=== PATIENT | female | born 1970 | race Caucasian/White ===

== ENCOUNTER 2018-07-21 22:35 | Emergency (ER) | payer SELFPAY ==
--- NOTE | 2018-07-21 22:45 | EDM.PDOC ---
ED HPI GENERAL MEDICAL PROBLEM - General Chief Complaint: Head Injury Stated Complaint: HEAD INJURY Time Seen by Provider: 07/21/18 22:45 Source of Information: Reports: Patient - History of Present Illness INITIAL COMMENTS - FREE TEXT/NARRATIVE: HISTORY AND PHYSICAL: History of present illness: [Patient was at [facility] she reports she tripped on a rug falling she did strike her left brow she does have a 1 cm linear laceration, he did offer stitches however she prefers Dermabond sufficient there is excellent wound approximation of loss of consciousness she does complain of left wrist pain x- rays obtained to acute fracture identified however she did have pain in the anatomical snuffbox hence thumb spica placed No fever nausea vomiting chills sweats no chest pain shortness breath headache dizziness palpitation no bowel or urine symptoms] Review of systems: As per history of present illness and below otherwise all systems reviewed and negative. Past medical history: As per history of present illness and as reviewed below otherwise noncontributory. Surgical history: As per history of present illness and as reviewed below otherwise noncontributory. Social history: No reported history of drug or alcohol abuse. Family history: As per history of present illness and as reviewed below otherwise noncontributory. Physical exam: HEENT: Atraumatic, normocephalic, pupils reactive, negative for conjunctival pallor or scleral icterus, mucous membranes moist, throat clear, neck supple, nontender, trachea midline. Lungs: Clear to auscultation, breath sounds equal bilaterally, chest nontender. Heart: S1S2, regular, negative for clicks, rubs, or JVD. Abdomen: Soft, nondistended, nontender. Negative for masses or hepatosplenomegaly. Negative for costovertebral tenderness. Pelvis: Stable nontender. Genitourinary: Deferred. Rectal: Deferred. Extremities: Atraumatic, negative for cords or calf pain. Neurovascular unremarkable. Neuro: Awake, alert, oriented. Cranial nerves II through XII unremarkable. Cerebellum unremarkable. Motor and sensory unremarkable throughout. Exam nonfocal. Skin as per history of present illness otherwise unremarkable Diagnostics: [Left wrist complete Head without contrast ] Therapeutics: []Left thumb spica Dermabond Impression: [] laceration 1 cm, simple left wrist sprain Snuffbox tenderness cannot rule out scaphoid fracture at this time Definitive disposition and diagnosis as appropriate pending reevaluation and review of above. 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 (Cancer) History: Reports: Lymphoma - Past Surgical History HEENT Surgical History: Reports: Naso-Sinus Surgery GI Surgical History: Reports: Cholecystectomy Female Surgical History: Reports: Hysterectomy, Other (See Below) Other Female Surgeries/Procedures: bladder sling Social & Family History - Tobacco Use Smoking Status *Q: Never Smoker - Recreational Drug Use Recreational Drug Use: No ED ROS GENERAL - Review of Systems Review Of Systems: See Below ED EXAM, HEAD INJURY - Physical Exam Exam: See Below Course - Vital Signs Last Recorded V/S: Last Vital Signs Temp 97.1 F 07/21/18 22:38 Pulse 70 07/21/18 22:38 Resp 18 07/21/18 22:38 BP 114/57 L 07/21/18 22:38 Pulse Ox 98 07/21/18 22:38 - Orders/Labs/Meds Orders: Active Orders 24 hr Category Date Time Status Head wo Cont [CT] Stat Exams 07/21/18 22:45 Taken Wrist Comp Min 3V Lt [CR] Stat Exams 07/21/18 22:45 Taken Meds: Medications Discontinued Medications Generic Name Dose Route Start Last Admin Trade Name Freq PRN Reason Stop Dose Admin Octyl Cyanoacrylate 1 applic 07/21/18 23:28 Dermabond Advance TOP 07/21/18 23:29 ONETIME ONE Departure - Departure Time of Disposition: 23:43 Disposition: Home, Self-Care 01 Condition: Good Clinical Impression: Laceration - Discharge Information Forms: ED Department Discharge Additional Instructions: Thumb spica on the left Standard wound care instruction Keep wound clean and dry Return if symptoms persist or worsen or new concerning symptoms develop Follow-up with orthopedist, call phone number below to schedule appropriate follow-up [facility] [address], [address] [place] [address] my orthopedic The following information is given to patients seen in the emergency department who are being discharged to home. This information is to outline your options for follow-up care. We provide all patients seen in our emergency department with a follow-up referral. The need for follow-up, as well as the timing and circumstances, are variable depending upon the specifics of your emergency department visit. If you don't have a primary care physician on staff, we will provide you with a referral. We always advise you to contact your personal physician following an emergency department visit to inform them of the circumstance of the visit and for follow-up with them and/or the need for any referrals to a consulting specialist. The emergency department will also refer you to a specialist when appropriate. This referral assures that you have the opportunity for follow-up care with a specialist. All of these measure are taken in an effort to provide you with optimal care, which includes your follow-up. Under all circumstances we always encourage you to contact your private physician who remains a resource for coordinating your care. When calling for follow-up care, please make the office aware that this follow-up is from your recent emergency room visit. If for any reason you are refused follow-up, please contact the [facility] emergency department at and asked to speak to the emergency department charge nurse. - My Orders Last 24 Hours: My Active Orders 07/21/18 22:45 Head wo Cont [CT] Stat Wrist Comp Min 3V Lt [CR] Stat - Assessment/Plan Last 24 Hours: My Active Orders 07/21/18 22:45 Head wo Cont [CT] Stat Wrist Comp Min 3V Lt [CR] Stat
[2018-07-21] MEDS ORDERED: Octyl 2-Cyanoacrylate 1 Tube TOP ONE (23:28)
[2018-07-21] MEDS ORDERED: Ketorolac 10 MG Tab PO ONE (23:45)
--- NOTE | 2018-07-22 11:35 | CT ---
EXAM DATE: 07/21/18 PATIENT'S AGE: 48 Patient: DANY ALVARES Facility: [place], [place] Site . Site : 1970 Study: CT Head [id number] 11:09:00 PM Ordering Physician: Doctor Colindres Final Report: INDICATION: fall, pain CT HEAD WITHOUT CONTRAST TECHNIQUE: Multiple axial CT images were performed through the head without intravenous contrast administration. COMPARISON: No previous studies are currently available for comparison. FINDINGS: No acute intracranial hemorrhage is identified. No extra-axial collections are evident and there is no mass effect or midline shift. Ventricles are normal in size and configuration. Brain parenchyma appears normal with unremarkable burdick-white differentiation. Osseous structures are within normal limits and no fractures are seen. Included portions of the paranasal sinuses and mastoid air cells are normally aerated. IMPRESSION: Normal non-contrast head CT. DEVENDRA ESCOTO MD [employer] Dictated by: Fazal Escoto MD @ 07/21/2018 23:20:11 (Electronic Signature) Report Signed by Proxy. [facility]
--- NOTE | 2018-07-22 11:37 | CR ---
EXAM DATE: 07/21/18 PATIENT'S AGE: 48 Patient: DANY ALVARES Facility: [place], [place] Site . Site : 1970 Study: XRay Extremity Left wrist [id number]/[id number] 11:09:51 PM Ordering Physician: Doctor Colindres Final Report: INDICATION: fall LEFT WRIST No fracture, dislocation, or destructive lesion of bone is seen. No significant arthritic changes or soft tissue abnormalities are identified. IMPRESSION: Negative left wrist radiographs. DEVENDRA ESCOTO MD [employer] Dictated by: Fazal Escoto MD @ 07/21/2018 23:17:56 (Electronic Signature) Report Signed by Proxy. [facility]
== END 2018-07-22 00:17 | disposition home or self-care (01) ==
LOC: MW.ED 22:35
DX: S01.112A Laceration without foreign body of left eyelid and periocular area, initial encounter (principal); S63.502A Unspecified sprain of left wrist, initial encounter; W01.10XA Fall on same level from slipping, tripping and stumbling with subsequent striking against unspecified object, initial encounter
CPT/HCPCS: 12011; 29125; 70450; 73110; 99284; A9270

== ENCOUNTER 2018-08-02 17:02 | Emergency (ER) | payer SELFPAY ==
[2018-08-02] MEDS ORDERED: Sodium Chloride 0.9% 1,000 ML IV ONE (17:08)
--- NOTE | 2018-08-02 17:12 | EDM.PDOC ---
ED HPI GENERAL MEDICAL PROBLEM - General Chief Complaint: Abdominal Pain Stated Complaint: NOT FEELING WELL Time Seen by Provider: 08/02/18 17:04 - History of Present Illness INITIAL COMMENTS - FREE TEXT/NARRATIVE: HISTORY AND PHYSICAL: History of present illness: Patient is 48-year-old white female with history of lymphoma diagnosed approximately 1 year prior has opted for no treatment presents with a concern of abdominal pain this is a chronic intermittent problem she has a reported involvement of her kidney. There is been nausea but no vomiting no fever no chills she's had some general malaise and is concerned about possible influenza she does agree to routine labs and imaging at this time but no other treatment. Review of systems: As per history of present illness and below otherwise all systems reviewed and negative. Past medical history: As per history of present illness and as reviewed below otherwise noncontributory. Surgical history: As per history of present illness and as reviewed below otherwise noncontributory. Social history: No reported history of drug or alcohol abuse. Family history: As per history of present illness and as reviewed below otherwise noncontributory. Physical exam: HEENT: Atraumatic, normocephalic, pupils reactive, negative for conjunctival pallor or scleral icterus, mucous membranes moist, throat clear, neck supple, nontender, trachea midline. Lungs: Clear to auscultation, breath sounds equal bilaterally, chest nontender. Heart: S1S2, regular, negative for clicks, rubs, or JVD. Abdomen: Soft, nondistended, no localized tenderness Negative for masses or hepatosplenomegaly. Negative for costovertebral tenderness. Pelvis: Stable nontender. Genitourinary: Deferred. Rectal: Deferred. Extremities: Atraumatic, negative for cords or calf pain. Neurovascular unremarkable. Neuro: Awake, alert, oriented. Cranial nerves II through XII unremarkable. Cerebellum unremarkable. Motor and sensory unremarkable throughout. Exam nonfocal. Diagnostics: CBC CMP and lipase UA hCG chest x-ray CT abdomen and pelvis urine drug screen PT /INR Therapeutics: Normal saline 1 L bolus Impression: #1 abdominal pain #2 history of lymphoma #3 history of substance abuse Definitive disposition and diagnosis as appropriate pending reevaluation and review of above. Right Abdominal Pain Score (Numeric/FACES): 7 - Related Data Allergies Allergy/AdvReac Type Severity Reaction Status Date / Time sertraline [From Zoloft] Allergy Other Verified 08/02/18 17:09 Home Meds: Home Meds . 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 ED EXAM, GENERAL - Physical Exam Exam: See Below (The dictation) Course - Vital Signs Last Recorded V/S: Last Vital Signs Temp 36.9 C 08/02/18 17:05 Pulse 98 08/02/18 17:05 Resp 20 08/02/18 17:05 BP 115/55 L 08/02/18 17:05 Pulse Ox 96 08/02/18 17:05 - Orders/Labs/Meds Labs: Laboratory Tests 08/02/18 08/02/18 08/02/18 Range/Units 17:15 17:15 17:15 WBC 7.21 (4.0-11.0) K/uL RBC 3.94 L (4.30-5.90) M/uL Hgb 11.4 L (12.0-16.0) g/dL Hct 34.4 L (36.0-46.0) % MCV 87.3 (80.0-98.0) fL MCH 28.9 (27.0-32.0) pg MCHC 33.1 (31.0-37.0) g/dL RDW Std Deviation 44.8 (28.0-62.0) fl RDW Coeff of Sandra 14 (11.0-15.0) % Plt Count 160 (150-400) K/uL MPV 9.40 (7.40-12.00) fL Neut % (Auto) 81.9 H (48.0-80.0) % Lymph % (Auto) 7.1 L (16.0-40.0) % Edmunds % (Auto) 9.7 (0.0-15.0) % Eos % (Auto) 1.0 (0.0-7.0) % Baso % (Auto) 0.3 (0.0-1.5) % Neut # (Auto) 5.9 H (1.4-5.7) K/uL Lymph # (Auto) 0.5 L (0.6-2.4) K/uL Edmunds # (Auto) 0.7 (0.0-0.8) K/uL Eos # (Auto) 0.1 (0.0-0.7) K/uL Baso # (Auto) 0.0 (0.0-0.1) K/uL Nucleated RBC % 0.0 /100WBC Nucleated RBCs # 0 K/uL INR 1.03 Sodium 142 (136-145) mmol/L Potassium 4.2 (3.5-5.1) mmol/L Chloride 109 H (98-107) mmol/L Carbon Dioxide 26.0 (21.0-32.0) mmol/L BUN 15 (7.0-18.0) mg/dL Creatinine 0.6 (0.6-1.0) mg/dL Est Cr Clr Drug Dosing 133.76 mL/min Estimated GFR (MDRD) > 60.0 ml/min Glucose 94 (74-106) mg/dL Calcium 8.7 (8.5-10.1) mg/dL Total Bilirubin 0.3 (0.2-1.0) mg/dL AST 9 L (15-37) IU/L ALT 22 (14-63) IU/L Alkaline Phosphatase 75 (46-116) U/L Total Protein 6.3 L (6.4-8.2) g/dL Albumin 3.2 L (3.4-5.0) g/dL Globulin 3.1 (2.6-4.0) g/dL Albumin/Globulin Ratio 1.0 (0.9-1.6) Lipase 190 (73-393) U/L HCG, Qual (NEG) Urine Color Urine Appearance Urine pH (5.0-8.0) Ur Specific Griffin (1.001-1.035) Urine Protein (NEGATIVE) mg/dL Urine Glucose (UA) (NEGATIVE) mg/dL Urine Ketones (NEGATIVE) mg/dL Urine Occult Blood (NEGATIVE) Urine Nitrite (NEGATIVE) Urine Bilirubin (NEGATIVE) Urine Urobilinogen (<2.0) EU/dL Ur Leukocyte Esterase (NEGATIVE) Urine Opiates Screen (NEGATIVE) Ur Oxycodone Screen (NEGATIVE) Urine Methadone Screen (NEGATIVE) Ur Barbiturates Screen (NEGATIVE) Ur Phencyclidine Scrn (NEGATIVE) Ur Amphetamine Screen (NEGATIVE) U Methamphetamines Scrn (NEGATIVE) U Benzodiazepines Scrn (NEGATIVE) U Cocaine Metab Screen (NEGATIVE) U Marijuana (THC) Screen (NEGATIVE) 08/02/18 08/02/18 08/02/18 Range/Units 17:15 17:35 17:35 WBC (4.0-11.0) K/uL RBC (4.30-5.90) M/uL Hgb (12.0-16.0) g/dL Hct (36.0-46.0) % MCV (80.0-98.0) fL MCH (27.0-32.0) pg MCHC (31.0-37.0) g/dL RDW Std Deviation (28.0-62.0) fl RDW Coeff of Sandra (11.0-15.0) % Plt Count (150-400) K/uL MPV (7.40-12.00) fL Neut % (Auto) (48.0-80.0) % Lymph % (Auto) (16.0-40.0) % Edmunds % (Auto) (0.0-15.0) % Eos % (Auto) (0.0-7.0) % Baso % (Auto) (0.0-1.5) % Neut # (Auto) (1.4-5.7) K/uL Lymph # (Auto) (0.6-2.4) K/uL Edmunds # (Auto) (0.0-0.8) K/uL Eos # (Auto) (0.0-0.7) K/uL Baso # (Auto) (0.0-0.1) K/uL Nucleated RBC % /100WBC Nucleated RBCs # K/uL INR Sodium (136-145) mmol/L Potassium (3.5-5.1) mmol/L Chloride (98-107) mmol/L Carbon Dioxide (21.0-32.0) mmol/L BUN (7.0-18.0) mg/dL Creatinine (0.6-1.0) mg/dL Est Cr Clr Drug Dosing mL/min Estimated GFR (MDRD) ml/min Glucose (74-106) mg/dL Calcium (8.5-10.1) mg/dL Total Bilirubin (0.2-1.0) mg/dL AST (15-37) IU/L ALT (14-63) IU/L Alkaline Phosphatase (46-116) U/L Total Protein (6.4-8.2) g/dL Albumin (3.4-5.0) g/dL Globulin (2.6-4.0) g/dL Albumin/Globulin Ratio (0.9-1.6) Lipase (73-393) U/L HCG, Qual NEGATIVE (NEG) Urine Color YELLOW Urine Appearance CLEAR Urine pH 5.5 (5.0-8.0) Ur Specific Griffin 1.025 (1.001-1.035) Urine Protein NEGATIVE (NEGATIVE) mg/dL Urine Glucose (UA) NEGATIVE (NEGATIVE) mg/dL Urine Ketones NEGATIVE (NEGATIVE) mg/dL Urine Occult Blood NEGATIVE (NEGATIVE) Urine Nitrite NEGATIVE (NEGATIVE) Urine Bilirubin NEGATIVE (NEGATIVE) Urine Urobilinogen 0.2 (<2.0) EU/dL Ur Leukocyte Esterase NEGATIVE (NEGATIVE) Urine Opiates Screen NEGATIVE (NEGATIVE) Ur Oxycodone Screen NEGATIVE (NEGATIVE) Urine Methadone Screen NEGATIVE (NEGATIVE) Ur Barbiturates Screen NEGATIVE (NEGATIVE) Ur Phencyclidine Scrn NEGATIVE (NEGATIVE) Ur Amphetamine Screen NEGATIVE (NEGATIVE) U Methamphetamines Scrn NEGATIVE (NEGATIVE) U Benzodiazepines Scrn NEGATIVE (NEGATIVE) U Cocaine Metab Screen NEGATIVE (NEGATIVE) U Marijuana (THC) Screen NEGATIVE (NEGATIVE) Meds: Medications Discontinued Medications Generic Name Dose Route Start Last Admin Trade Name Kaley PRN Reason Stop Dose Admin Acetaminophen 650 mg 08/02/18 17:50 08/02/18 17:57 Tylenol PO 08/02/18 17:51 650 mg NOW ONE Administration Sodium Chloride 1,000 mls @ 999 mls/hr 08/02/18 17:08 08/02/18 17:58 Normal Saline IV 08/02/18 18:08 999 mls/hr STAT ONE Administration Departure - Departure Time of Disposition: 19:10 Disposition: Home, Self-Care 01 Condition: Good Clinical Impression: Abdominal pain, Encounter for medical screening examination - Discharge Information Forms: ED Department Discharge Additional Instructions: The following information is given to patients seen in the emergency department who are being discharged to home. This information is to outline your options for follow-up care. We provide all patients seen in our emergency department with a follow-up referral. The need for follow-up, as well as the timing and circumstances, are variable depending upon the specifics of your emergency department visit. If you don't have a primary care physician on staff, we will provide you with a referral. We always advise you to contact your personal physician following an emergency department visit to inform them of the circumstance of the visit and for follow-up with them and/or the need for any referrals to a consulting specialist. The emergency department will also refer you to a specialist when appropriate. This referral assures that you have the opportunity for followup care with a specialist. All of these measure are taken in an effort to provide you with optimal care, which includes your followup. Under all circumstances we always encourage you to contact your private physician who remains a resource for coordinating your care. When calling for followup care, please make the office aware that this follow-up is from your recent emergency room visit. If for any reason you are refused follow-up, please contact the [facility] emergency department at and asked to speak to the emergency department charge nurse. [facility] - Urology [address] [place] [id number] Follow-up urology above: Schedule routine appointment return as needed as discussed
[2018-08-02] MEDS ORDERED: Acetaminophen 325 MG Tab PO ONE (17:50)
[2018-08-02 18:03] LABS: CHLORIDE,CL 109 mmol/L (98-107); SODIUM,NA 142 mmol/L (136-145)
--- NOTE | 2018-08-02 18:10 | CR ---
INDICATION: Shortness of breath. Pain. TECHNIQUE: Chest 1 view. COMPARISON: None FINDINGS: Cardiovascular and mediastinum: Heart size and vasculature are normal in caliber and appearance. Mediastinum is within normal limits. Lungs and pleural space: Calcified granuloma in the right lower lung zone. Mild linear atelectasis in the right lower lung zone. No lobar consolidation. No edema. No mass. No pleural effusion. No pneumothorax. Mild elevation of the right hemidiaphragm. Bones and soft tissues: No acute findings. IMPRESSION: No acute pulmonary process. Dictated by Mazin Smith MD @ Aug 02 2018 6:08PM Signed by Dr. Mazin Smith @ Aug 02 2018 6:09PM
--- NOTE | 2018-08-02 18:21 | CT ---
INDICATION: Nausea, vomiting, right-sided abdominal pain. TECHNIQUE: 3 mm noncontrast axial imaging has been performed through the abdomen and pelvis. FINDINGS: Lung bases are free of significant infiltrate. Calcified granuloma on the right is noted. The noncontrast liver, pancreas, bilateral adrenal glands are within normal limits. Patient is status post cholecystectomy. There are scattered calcifications in the spleen. The spleen otherwise is unremarkable. The left kidney is within normal limits. The right kidney demonstrates a dilated renal pelvis and moderate caliectasis. Ureter appears to be of normal caliber. No ureteric stones are seen. The bilateral UVJ and bladder base is unremarkable. Within the pelvis there is no significant free fluid. There is a 4.5 x 3.1 cm left ovarian cyst. Small follicle right ovary noted. There are no findings to suggest bowel obstruction. The appendix is difficult to visualize but appears to be posterior, best seen on coronal image 39. There is no evidence for bowel obstruction. No evidence for colitis. Moderate amount retained stool is noted. IMPRESSION: 1. Dilated renal pelvis and caliectasis on the right noted. Findings are most compatible with a UPJ obstruction. No edematous changes noted. No radiopaque kidney stones are noted. 2. No findings to suggest bowel obstruction. No significant free fluid noted. 3. 4.6 x 3.1 cm cystic lesion within the left ovary. The right ovary demonstrates a small dominant follicle. No significant free fluid noted. If desired, these could be better evaluated by ultrasound. 4. Other findings as detailed above. Dictated by Thierry Dubose MD @ 08/02/2018 6:19:19 PM Please note that all CT scans at this facility use dose modulation, iterative reconstruction, and/or weight-based dosing when appropriate to reduce radiation dose to as low as reasonably achievable. Dictated by: Thierry Dubose MD @ 08/02/2018 18:19:25 (Electronically Signed)
== END 2018-08-02 19:24 | disposition home or self-care (01) ==
LOC: MW.ED 17:02
DX: R10.9 Unspecified abdominal pain (principal); Z88.8 Allergy status to other drugs, medicaments and biological substances
CPT/HCPCS: 36415; 71045; 74176; 80053; 80305; 81003; 83690; 84703; 85025; 85610; 87804; 96360; 99284; A9270; J7040; 99283

== ENCOUNTER 2018-08-04 05:28 | Emergency (ER) | payer MEDICAID ==
[2018-08-04] MEDS ORDERED: Sodium Chloride 0.9% 1,000 ML IV ONE (05:37)
[2018-08-04] MEDS ORDERED: Acetaminophen 500 MG Tab PO ONE (05:46)
[2018-08-04] MEDS ORDERED: Ketorolac 30 MG/ML SDV IVPUSH ONE (05:58)
[2018-08-04 06:02] LABS: CHLORIDE,CL 105 mmol/L (98-107); SODIUM,NA 141 mmol/L (136-145)
--- NOTE | 2018-08-04 06:31 | EDM.PDOC ---
ED HPI GENERAL MEDICAL PROBLEM - General Chief Complaint: General Stated Complaint: GENERAL WEAKNESS Time Seen by Provider: 08/04/18 06:28 - History of Present Illness INITIAL COMMENTS - FREE TEXT/NARRATIVE: HISTORY AND PHYSICAL: History of present illness: Patient 48-year-old white female presents with concern of cough headache body aches 4 days she denies shortness of breath nausea vomiting diarrhea or other complaints. Review of systems: As per history of present illness and below otherwise all systems reviewed and negative. Past medical history: As per history of present illness and as reviewed below otherwise noncontributory. Surgical history: As per history of present illness and as reviewed below otherwise noncontributory. Social history: No reported history of drug or alcohol abuse. Family history: As per history of present illness and as reviewed below otherwise noncontributory. Physical exam: HEENT: Atraumatic, normocephalic, pupils reactive, negative for conjunctival pallor or scleral icterus, mucous membranes moist, throat clear, neck supple, nontender, trachea midline. Lungs: Clear to auscultation, breath sounds equal bilaterally, chest nontender. Heart: S1S2, regular, negative for clicks, rubs, or JVD. Abdomen: Soft, nondistended, nontender. Negative for masses or hepatosplenomegaly. Negative for costovertebral tenderness. Pelvis: Stable nontender. Genitourinary: Deferred. Rectal: Deferred. Extremities: Atraumatic, negative for cords or calf pain. Neurovascular unremarkable. Neuro: Awake, alert, oriented. Cranial nerves II through XII unremarkable. Cerebellum unremarkable. Motor and sensory unremarkable throughout. Exam nonfocal. Diagnostics: CBC CMP lactic acid influenza screen chest x-ray UA blood cultures 2 Therapeutics: Saline 1 L bolus and Toradol 30 mg IV Impression: #1 influenza Definitive disposition and diagnosis as appropriate pending reevaluation and review of above. head;back Pain Score (Numeric/FACES): 10 - Related Data Allergies Allergy/AdvReac Type Severity Reaction Status Date / Time sertraline [From Zoloft] Allergy Other Verified 08/04/18 05:44 Home Meds: Home Meds . 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: Oncologic (Cancer) History: Reports: Lymphoma - Past Surgical History HEENT Surgical History: Reports: Naso-Sinus Surgery GI Surgical History: Reports: Cholecystectomy Female Surgical History: Reports: Hysterectomy, Other (See Below) Other Female Surgeries/Procedures: bladder sling Social & Family History - Family History Family Medical History: Noncontributory - Tobacco Use Smoking Status *Q: Never Smoker - Caffeine Use Caffeine Use: Reports: None - Recreational Drug Use Recreational Drug Use: No ED ROS GENERAL - Review of Systems Review Of Systems: ROS reveals no pertinent complaints other than HPI. ED EXAM, GENERAL - Physical Exam Exam: See Below (See dictation) Course - Vital Signs Last Recorded V/S: Last Vital Signs Temp 39.4 C H 08/04/18 05:28 Pulse 92 08/04/18 05:28 Resp 18 08/04/18 05:28 BP 129/50 L 08/04/18 05:28 Pulse Ox 98 08/04/18 05:28 - Orders/Labs/Meds Orders: Active Orders 24 hr Category Date Time Status Chest 2V [CR] Stat Exams 08/04/18 05:37 Taken CULTURE BLOOD [BC] Stat Lab 08/04/18 05:26 Received CULTURE BLOOD [BC] Stat Lab 08/04/18 05:54 Received Sodium Chloride 0.9% [Normal Saline] 1,000 ml Med 08/04/18 05:37 Active IV .Bolus Blood Culture x2 Reflex Set [OM.PC] Stat Oth 08/04/18 05:37 Ordered Medication Orders Sodium Chloride (Normal Saline) 1,000 mls @ 999 mls/hr IV .Bolus ONE Stop: 08/04/18 06:37 Last Admin: 08/04/18 05:40 Dose: 999 mls/hr Labs: Laboratory Tests 08/04/18 08/04/18 08/04/18 Range/Units 05:26 05:26 05:26 WBC 7.33 (4.0-11.0) K/uL RBC 4.05 L (4.30-5.90) M/uL Hgb 11.8 L (12.0-16.0) g/dL Hct 35.3 L (36.0-46.0) % MCV 87.2 (80.0-98.0) fL MCH 29.1 (27.0-32.0) pg MCHC 33.4 (31.0-37.0) g/dL RDW Std Deviation 45.9 (28.0-62.0) fl RDW Coeff of Sandra 14 (11.0-15.0) % Plt Count 148 L (150-400) K/uL MPV 9.50 (7.40-12.00) fL Neut % (Auto) 84.2 H (48.0-80.0) % Lymph % (Auto) 8.5 L (16.0-40.0) % Dale % (Auto) 7.2 (0.0-15.0) % Eos % (Auto) 0.0 (0.0-7.0) % Baso % (Auto) 0.1 (0.0-1.5) % Neut # (Auto) 6.2 H (1.4-5.7) K/uL Lymph # (Auto) 0.6 (0.6-2.4) K/uL Dale # (Auto) 0.5 (0.0-0.8) K/uL Eos # (Auto) 0.0 (0.0-0.7) K/uL Baso # (Auto) 0.0 (0.0-0.1) K/uL Nucleated RBC % 0.0 /100WBC Nucleated RBCs # 0 K/uL Lactate 0.9 (0.20-2.00) mmol/L Sodium 141 (136-145) mmol/L Potassium 3.8 (3.5-5.1) mmol/L Chloride 105 (98-107) mmol/L Carbon Dioxide 25.0 (21.0-32.0) mmol/L BUN 8 (7.0-18.0) mg/dL Creatinine 0.6 (0.6-1.0) mg/dL Est Cr Clr Drug Dosing 133.76 mL/min Estimated GFR (MDRD) > 60.0 ml/min Glucose 111 H (74-106) mg/dL Calcium 8.5 (8.5-10.1) mg/dL Total Bilirubin 0.2 (0.2-1.0) mg/dL AST 18 (15-37) IU/L ALT 24 (14-63) IU/L Alkaline Phosphatase 71 (46-116) U/L Total Protein 6.7 (6.4-8.2) g/dL Albumin 3.3 L (3.4-5.0) g/dL Globulin 3.4 (2.6-4.0) g/dL Albumin/Globulin Ratio 1.0 (0.9-1.6) Meds: Medications Generic Name Dose Route Start Last Admin Trade Name Raghuq PRN Reason Stop Dose Admin Sodium Chloride 1,000 mls @ 999 mls/hr 08/04/18 05:37 08/04/18 05:40 Normal Saline IV 08/04/18 06:37 999 mls/hr .Bolus ONE Administration Discontinued Medications Generic Name Dose Route Start Last Admin Trade Name Freq PRN Reason Stop Dose Admin Acetaminophen 1,000 mg 08/04/18 05:46 08/04/18 06:04 Tylenol Extra Strength PO 08/04/18 05:47 Not Given ONETIME ONE Ketorolac Tromethamine 30 mg 08/04/18 05:58 08/04/18 06:03 Toradol IVPUSH 08/04/18 05:59 30 mg ONETIME ONE Administration Departure - Departure Time of Disposition: 06:29 Disposition: Home, Self-Care 01 Condition: Good Clinical Impression: Influenza - Discharge Information Additional Instructions: The following information is given to patients seen in the emergency department who are being discharged to home. This information is to outline your options for follow-up care. We provide all patients seen in our emergency department with a follow-up referral. The need for follow-up, as well as the timing and circumstances, are variable depending upon the specifics of your emergency department visit. If you don't have a primary care physician on staff, we will provide you with a referral. We always advise you to contact your personal physician following an emergency department visit to inform them of the circumstance of the visit and for follow-up with them and/or the need for any referrals to a consulting specialist. The emergency department will also refer you to a specialist when appropriate. This referral assures that you have the opportunity for followup care with a specialist. All of these measure are taken in an effort to provide you with optimal care, which includes your followup. Under all circumstances we always encourage you to contact your private physician who remains a resource for coordinating your care. When calling for followup care, please make the office aware that this follow-up is from your recent emergency room visit. If for any reason you are refused follow-up, please contact the [facility] emergency department at and asked to speak to the emergency department charge nurse. Push fluids Motrin/Tylenol as directed infectious precautions as discussed return as needed as discussed contacts to be evaluated and treatment prophylaxis as applicable as discussed - My Orders Last 24 Hours: My Active Orders 08/04/18 05:26 CULTURE BLOOD [BC] Stat 08/04/18 05:37 Chest 2V [CR] Stat Sodium Chloride 0.9% [Normal Saline] 1,000 ml IV .Bolus Blood Culture x2 Reflex Set [OM.PC] Stat 08/04/18 05:54 CULTURE BLOOD [BC] Stat - Assessment/Plan Last 24 Hours: My Active Orders 08/04/18 05:26 CULTURE BLOOD [BC] Stat 08/04/18 05:37 Chest 2V [CR] Stat Sodium Chloride 0.9% [Normal Saline] 1,000 ml IV .Bolus Blood Culture x2 Reflex Set [OM.PC] Stat 08/04/18 05:54 CULTURE BLOOD [BC] Stat
[2018-08-04] MEDS ORDERED: Ibuprofen 400 MG Tab PO ONE (06:39)
--- NOTE | 2018-08-04 06:49 | CR ---
INDICATION: Shortness of breath COMPARISON: PA chest dated 08/02/2018 TECHNIQUE: Two view chest. FINDINGS: As compared to the recent exam dated 08/02/2018 there has been development of cardiomegaly and central pulmonary vascular congestion. There is small amount of fluid outlining the minor fissure. There is no evidence of thickening within the peripheral septal lines and there is no evidence of pleural fluid. No suspicious infiltrates or masses are identified. IMPRESSION: Developing CHF. Dictated by Asad Aguiar MD @ Aug 04 2018 6:46AM Signed by Dr. Asad Aguiar @ Aug 04 2018 6:48AM
== END 2018-08-04 07:00 | disposition home or self-care (01) ==
LOC: MW.ED 05:28
DX: J11.1 Influenza due to unidentified influenza virus with other respiratory manifestations (principal); Z88.8 Allergy status to other drugs, medicaments and biological substances
CPT/HCPCS: 36415; 71046; 80053; 83605; 85025; 87040; 87804; 96361; 96374; 99284; A9270; J1885; J7040; 87186